=== PATIENT | male | born 1955 | race Caucasian/White ===

== ENCOUNTER → 2019-11-21 09:48 | Outpatient (BNVA) | payer MEDICAID, SELFPAY | PROVIDERS: Family Provider Nurse Practitioner; PCP Nurse Practitioner; Visit Provider Nurse Practitioner | DX: J44.9 Chronic obstructive pulmonary disease, unspecified (principal); M50.90 Cervical disc disorder, unspecified, unspecified cervical region; I25.10 Atherosclerotic heart disease of native coronary artery without angina pectoris; E11.65 Type 2 diabetes mellitus with hyperglycemia; I10 Essential (primary) hypertension; E78.2 Mixed hyperlipidemia | CPT/HCPCS: 80053; 80061; 83036 ==

== ENCOUNTER → 2020-01-31 08:13 | Outpatient (BNVA) | payer MEDICAID, SELFPAY | PROVIDERS: Family Provider Nurse Practitioner; PCP Nurse Practitioner; Visit Provider Nurse Practitioner | DX: E11.65 Type 2 diabetes mellitus with hyperglycemia (principal); E78.2 Mixed hyperlipidemia | CPT/HCPCS: 80053; 80061; 83036 ==

== ENCOUNTER → 2020-05-01 14:46 | Outpatient (BNVA) | payer MEDICAID, SELFPAY | PROVIDERS: Family Provider Nurse Practitioner; PCP Nurse Practitioner; Visit Provider Nurse Practitioner | DX: E11.65 Type 2 diabetes mellitus with hyperglycemia (principal); J44.9 Chronic obstructive pulmonary disease, unspecified; M50.90 Cervical disc disorder, unspecified, unspecified cervical region; I25.10 Atherosclerotic heart disease of native coronary artery without angina pectoris; I10 Essential (primary) hypertension; E78.2 Mixed hyperlipidemia | CPT/HCPCS: 80053; 80061; 81000; 83036 ==

== ENCOUNTER → 2020-05-02 15:45 | Outpatient (BNVA) | payer OTHER, MEDICAID, SELFPAY | PROVIDERS: Family Provider Nurse Practitioner; PCP Nurse Practitioner; Visit Provider Nurse Practitioner | DX: M50.90 Cervical disc disorder, unspecified, unspecified cervical region (principal); M25.511 Pain in right shoulder; M25.512 Pain in left shoulder; M54.9 Dorsalgia, unspecified; M54.2 Cervicalgia; R07.9 Chest pain, unspecified | CPT/HCPCS: 72040; 72072; 73030 ==

== ENCOUNTER 2020-05-08 16:41 | Emergency (ER) | payer OTHER, MEDICAID, SELFPAY ==
[2020-05-08 17:04] VITALS: BP 178/101; PULSE 67; RESP 18; TEMP 36.4; O2SAT 98; BMI 28.3
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
[2020-05-08] MEDS: diphenhydrAMINE 50 mg/mL SDV 1mL 25 MG IVP (18:46)
[2020-05-08] MEDS: ketorolac 30 mg/mL INJ IVP (18:46)
[2020-05-08] MEDS: metoclopramide 5 mg/mL SDV 2 mL 10 MG IVP (18:46)
[2020-05-08] MEDS: dexamethasone 10 mg/mL INJ IVP (18:47)
[2020-05-08] MEDS: sodium chloride 0.9% 1,000 ML 999 ML IV (18:47)
--- NOTE | 2020-05-08 19:18 | PC.NURSE ---
Report received from MOE Marcelo, and care transferred to MOE Topete
[2020-05-08 20:12] VITALS: BP 146/89; PULSE 61; RESP 18; O2SAT 99
== END 2020-05-08 20:13 | disposition home or self-care (01) ==
PROVIDERS: Emergency Provider Physician Assistant; PCP Nurse Practitioner
DX: M54.16 Radiculopathy, lumbar region (principal); G44.319 Acute post-traumatic headache, not intractable; S13.4XXA Sprain of ligaments of cervical spine, initial encounter; Z79.82 Long term (current) use of aspirin; Z79.02 Long term (current) use of antithrombotics/antiplatelets; V89.2XXA Person injured in unspecified motor-vehicle accident, traffic, initial encounter; I25.10 Atherosclerotic heart disease of native coronary artery without angina pectoris; I50.9 Heart failure, unspecified; E11.9 Type 2 diabetes mellitus without complications; J44.9 Chronic obstructive pulmonary disease, unspecified; E78.2 Mixed hyperlipidemia; F17.210 Nicotine dependence, cigarettes, uncomplicated
CPT/HCPCS: 12345; 70450; 72125; 73562; 96361; 96374; 96375; 99283; J1100; J1200; J1885; J2765; J7030

== ENCOUNTER 2020-05-16 06:00 | Outpatient (RCR) | payer OTHER, MEDICAID, SELFPAY | END 2020-06-06 23:59 | disposition home or self-care (01) | LOC: APT 06:00 | PROVIDERS: PCP Nurse Practitioner; Referring Provider Nurse Practitioner; Visit Provider Nurse Practitioner | DX: M54.16 Radiculopathy, lumbar region (principal); G44.319 Acute post-traumatic headache, not intractable; M50.90 Cervical disc disorder, unspecified, unspecified cervical region | CPT/HCPCS: 97110; 97140; 97163 ==

== ENCOUNTER 2020-06-07 06:00 | Outpatient (RCR) | payer OTHER, MEDICAID, SELFPAY | END 2020-07-07 23:59 | disposition home or self-care (01) | LOC: APT 06:00 | PROVIDERS: PCP Nurse Practitioner; Referring Provider Nurse Practitioner; Visit Provider Nurse Practitioner | DX: M54.16 Radiculopathy, lumbar region (principal); G44.319 Acute post-traumatic headache, not intractable; V89.2XXA Person injured in unspecified motor-vehicle accident, traffic, initial encounter; M50.90 Cervical disc disorder, unspecified, unspecified cervical region | CPT/HCPCS: 97110; 97140; 97164 ==

== ENCOUNTER 2020-07-04 07:33 | Outpatient (CLI) | payer MEDICAID, SELFPAY ==
--- NOTE | 2020-07-04 08:00 | MR_ITS ---
WS: [id number] MRI LEFT KNEE HISTORY: M25.562 Pain in left knee COMPARISON: 05/08/2020 radiographs. Anterior cruciate ligament: Intact. Posterior cruciate ligament: Intact. Medial collateral ligament: Intact. Posterior lateral corner structures: Intact. Medial menisci: Minimally complex tear in the posterior horn extends to the inferior articular surfac e. There is both vertical and horizontal component of the tear. Anterior horn is normal. Lateral meniscus: Intact. Normal signal, size and shape. Extensor mechanism: There is some very mild increased signal in the distal quadriceps tendon. No tear s. Fluid and soft tissue: No significant joint effusion. No Apple's cyst. Osseous and articular structures: Patellofemoral compartment: Normal. Medial compartment: Small focal tear in the cartilage of the femoral condyle towards the intercondyla r notch. This is also close to the site of the meniscal tear. No marrow edema or fracture. Mild narro wing and osteoarthritis of the medial compartment. Lateral compartment: Very mild fraying of the cartilage. No full-thickness tears. Mild narrowing oste oarthritis of the lateral compartment. MR/MR knee LT con* [id number] IMPRESSION: 1. Mildly complex tear posterior horn medial meniscus. Associated meniscal tea r in the medial femoral condyle. 2. Mild medial and lateral compartment arthritis. 3. No fracture.
== END 2020-07-04 07:34 | disposition home or self-care (01) ==
LOC: RADSHAW 07:35
PROVIDERS: PCP Nurse Practitioner; Visit Provider Nurse Practitioner
DX: S83.232A Complex tear of medial meniscus, current injury, left knee, initial encounter (principal); X58.XXXA Exposure to other specified factors, initial encounter; M13.862 Other specified arthritis, left knee
CPT/HCPCS: 73721

== ENCOUNTER 2020-07-08 06:00 | Outpatient (RCR) | payer OTHER, MEDICAID, SELFPAY | END 2020-08-06 23:59 | disposition home or self-care (01) | LOC: APT 06:00 | PROVIDERS: PCP Nurse Practitioner; Referring Provider Nurse Practitioner; Visit Provider Nurse Practitioner | DX: M54.16 Radiculopathy, lumbar region (principal); G44.319 Acute post-traumatic headache, not intractable; V89.2XXA Person injured in unspecified motor-vehicle accident, traffic, initial encounter | CPT/HCPCS: 97110 ==

== ENCOUNTER → 2020-07-16 08:25 | Outpatient (BNVA) | payer MEDICAID, SELFPAY | PROVIDERS: PCP Nurse Practitioner; Visit Provider Nurse Practitioner | DX: E11.65 Type 2 diabetes mellitus with hyperglycemia (principal); E78.2 Mixed hyperlipidemia; I10 Essential (primary) hypertension | CPT/HCPCS: 80053; 80061; 83036; 85025 ==

== ENCOUNTER → 2020-08-10 09:01 | Outpatient (BNVA) | payer MEDICAID, SELFPAY | PROVIDERS: PCP Nurse Practitioner; Visit Provider Orthopaedic Surgery | DX: Z20.828 Contact with and (suspected) exposure to other viral communicable diseases (principal); M47.816 Spondylosis without myelopathy or radiculopathy, lumbar region | CPT/HCPCS: 87635 ==

== ENCOUNTER 2020-08-16 10:47 | Day surgery (SDC) | payer MEDICAID, SELFPAY ==
[2020-08-15 15:34] VITALS: BMI 28.7
[2020-08-16] VITALS (11 sets, daily range): BP systolic 127–161; BP diastolic 80–101; PULSE 75–86; RESP 11–18; TEMP 36.1–36.7; O2SAT 96–100
--- NOTE | 2020-08-16 07:54 | W.PM.OPSUD ---
Surgery/Procedure H&P Update DATE OF PROCEDURE: August 16, 2020 DATE H&P PERFORMED: 07/30/20 PREOP DIAGNOSIS: Left medial meniscal tear PLANNED PROCEDURE: Operation Date: 08/16/20 09:10 Proposed Procedures p left knee arthroscopy with medial meniscectomy [id number] s83.242a(Left) - Arslan Queen MD
[2020-08-16 08:07] LABS: Glucose Point of Care 101 mg/dL (70-110)
[2020-08-16] MEDS: sodium chloride 0.9% 1,000 ML 30 ML IV (08:08)
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
[2020-08-16] MEDS: morphine 4 mg/mL SDV 1 mL 8 MG IM (09:26)
--- NOTE | 2020-08-16 09:37 | PM.OP ---
Operative Report Date of procedure: August 16, 2020 Pre-op Diagnosis: Left medial meniscal tear Post-op diagnosis: same Post-op Findings: Same Procedure Done: Partial left lateral meniscectomy Pathology: none sent Surgeon: Arslan Queen Anesthesia: General Estimated blood loss (mL): 5 Findings: Complex degenerative tear left medial meniscus delving central 70% Condition: stable Procedure: The patient was taken to the operating room and given a general anesthesia. He was prepped and draped in the supine position with his left lower extremity exposed. The left knee was infiltrated with 30 cc of 0.5% Marcaine with epi and 10 mg of morphine. A timeout was performed. The knee was initially entered through a standard inferior medial and inferolateral portals. The diagnostic portion arthroscopy was performed. Thick complex tearing was noted in the area of the medial meniscus consisting of central degeneration and horizontal cleavage extending back to peripheral third of the meniscus. Really no chondromalacia was identified. There is only mild softening of the cartilage beneath the patella but no significant fissures or chondral defects were noted throughout the knee. Is a central stabilizing ligaments were healthy. Attention was then paid to the medial meniscus. Utilizing a basket unstable superior and inferior flaps were debrided back to a stable rim. The [employer] probe was used to debride the remaining meniscus back to a stable rim leaving approximately 30% of the middle and posterior third of the meniscus remaining. The knee was irrigated with saline. Portals were closed with 3-0 Prolene. Sterile dressings were applied. The patient was extubated and taken to the recovery room in stable condition.
--- NOTE | 2020-08-16 09:42 | SUR.PHASEI ---
0942 PT L. PEDAL PULSE PALPATED, STRONG. CAP REFILL <3 SEC
== END 2020-08-16 11:00 | disposition home or self-care (01) ==
LOC: OR 10:47
PROVIDERS: PCP Nurse Practitioner; Visit Provider Orthopaedic Surgery
PROC: (CPT 29870; principal; 2020-08-16 09:10)
DX: S83.242A Other tear of medial meniscus, current injury, left knee, initial encounter (principal); X58.XXXA Exposure to other specified factors, initial encounter; F17.210 Nicotine dependence, cigarettes, uncomplicated; J44.9 Chronic obstructive pulmonary disease, unspecified; K21.9 Gastro-esophageal reflux disease without esophagitis; F41.9 Anxiety disorder, unspecified; I25.10 Atherosclerotic heart disease of native coronary artery without angina pectoris; E78.2 Mixed hyperlipidemia; I50.9 Heart failure, unspecified; E13.65 Other specified diabetes mellitus with hyperglycemia; Z79.82 Long term (current) use of aspirin
CPT/HCPCS: 29881; 12345; 36416; 82962; J0690; J2270; J3010; J3490; J7030

== ENCOUNTER → 2020-10-29 15:03 | Outpatient (BNVA) | payer MEDICAID, SELFPAY | PROVIDERS: PCP Nurse Practitioner; Visit Provider Nurse Practitioner | DX: J44.9 Chronic obstructive pulmonary disease, unspecified (principal); M50.90 Cervical disc disorder, unspecified, unspecified cervical region; I25.10 Atherosclerotic heart disease of native coronary artery without angina pectoris; E11.65 Type 2 diabetes mellitus with hyperglycemia; E78.2 Mixed hyperlipidemia; K21.9 Gastro-esophageal reflux disease without esophagitis; F41.9 Anxiety disorder, unspecified; I10 Essential (primary) hypertension | CPT/HCPCS: 80053; 80061; 82043; 83036 ==

== ENCOUNTER 2021-01-15 08:49 | Outpatient (CLI) | payer MEDICARE, MEDICAID, SELFPAY ==
--- NOTE | 2021-01-15 08:59 | ECG_ITS ---
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 Interpretive Statements NAME OF STUDY: LEXISCAN SESTAMIBI STRESS TEST INDICATION: Coronary Artery Disease PROCEDURE: At the baseline, the blood pressure was 140/85 mm Hg with a heart rate of 64 bpm. The electrocardiogram showed sinus rhythm, normal axis and non specific ST-T wave changes. The Lexiscan was infused over a period of 20 seconds. A total of 0.4 milligrams of Lexiscan was infused. The stress phase was continued for a total of 5 minutes. Heart rate at the end of the stress phase was 78 bpm with a blood pressure of 125/72 mm Hg. The EKG at the peak infusion revealed no significant ST-T wave changes. Sestamibi was injected 20 seconds after the Lexiscan infusion. Blood pressure at the end of the recovery phase was 120/73 mm Hg with a heart rate of 75 beats per minute. CONCLUSION: 1. No significant EKG changes with the LexiScan infusion. 2. No LexiScan induced chest pain or cardiac arrhythmia. 3. Normal blood pressure and heart rate response. 4. Sestamibi/sestamibi perfusion scan pending; see separate report. Electronically Signed On 01-18-2021 17:02:43 CDT by Kera Mason M.D. [id number]
--- NOTE | 2021-01-15 08:59 | NMCV_ITS ---
NM cresencio perf SPECT r/s* [id number] Keyshawn Simons Age: 65 Gender: M : 1955 Exam Date: 01/15/2021 08:59 Ordering Phys: Whit Fortune Technologist: MICHAELA Nevarez Exam Location: [facility] Indications: CAD STRESS TEST [facility] IMAGE PROTOCOL Rest/Stress 1 Lexiscan Day Radiopharmaceutical Dose (mCi) Administration Site Administered by Rest: Tc-99m 10.9 IV MICHAELA Weldon Sestamibi Stress:Tc-99m 32.7 IV MICHAELA Nevarez Sestamibi Rest: 15-Jan-2021 60 Discovery 630 Stress: 15-Jan-2021 30 Discovery 630 0.4mg Lexiscan. Images obtained in supine and prone position. SPECT RESULTS Technical Quality: Excellent Raw Data Analysis: Normal Image Corrections: No attenuation or motion correction applied Summed Stress Score: 10 Summed Rest Score: 4 Summed Difference Score: 7 PERFUSION FINDINGS Medium sized perfusion abnormality of mid anterior, mid to apical sabrina-septal joy on rest images with reversibility in basal to apical anterior, mid to apical anteroseptal and apical lateral joy on stress imges. FUNCTIONAL RESULTS (calculated via Gated SPECT) Stress Image LV EF (%): 43 Stress EDV (mL):168 TID: 0.91 Stress ESV (mL):95 FUNCTIONAL FINDINGS: The left ventricle is dilated. Transient Ischemia Dilatation of 0.91. There is mildly reduced left ventricular systolic function. The left ventricular ejection fraction is mildly reduced with a value of 43%. There is hypokinesis of anterior, septal and apical joy. Increased end diastolic and end systolic volumes. IMPRESSIONS 1. Medium sized partially reversible perfusion abnormality of basal to apical anterior, mid to apical anteroseptal and apical lateral joy. 2. 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 3. The left ventricular ejection fraction is mildly reduced with a value of 43%. 4. There is hypokinesis of anterior, septal and apical joy. 5. No significant change when compared to old study dated 04/02/2018. Kera Mason MD (Electronically Signed) Final Date: 20 Jan 2021 23:46 S
[2021-01-15 09:41] VITALS: BMI 27.4
[2021-01-15] MEDS: regadenoson 0.4 Mg/5 ml Syringe IVP (10:33)
[2021-01-15 10:51] VITALS: BP 127/75; PULSE 77
== END 2021-01-15 08:50 | disposition home or self-care (01) ==
PROVIDERS: PCP Nurse Practitioner; Visit Provider Nurse Practitioner Family
DX: I25.10 Atherosclerotic heart disease of native coronary artery without angina pectoris (principal)
CPT/HCPCS: 78452; 93017; A9500; J2785

== ENCOUNTER → 2021-01-31 13:57 | Outpatient (BNVA) | payer MEDICARE, MEDICAID, SELFPAY | PROVIDERS: PCP Nurse Practitioner; Visit Provider Nurse Practitioner | DX: I25.118 Atherosclerotic heart disease of native coronary artery with other forms of angina pectoris (principal); I10 Essential (primary) hypertension; F41.9 Anxiety disorder, unspecified; K21.9 Gastro-esophageal reflux disease without esophagitis; E78.2 Mixed hyperlipidemia; E11.65 Type 2 diabetes mellitus with hyperglycemia; I25.10 Atherosclerotic heart disease of native coronary artery without angina pectoris; M50.90 Cervical disc disorder, unspecified, unspecified cervical region; J44.9 Chronic obstructive pulmonary disease, unspecified | CPT/HCPCS: 80053; 83036 ==

== ENCOUNTER → 2021-02-05 09:27 | Outpatient (BNVA) | payer MEDICARE, MEDICAID, SELFPAY | PROVIDERS: PCP Nurse Practitioner; Visit Provider Internal Medicine Cardiovascular Disease | DX: I25.118 Atherosclerotic heart disease of native coronary artery with other forms of angina pectoris (principal); I50.32 Chronic diastolic (congestive) heart failure; Z20.822 Contact with and (suspected) exposure to COVID-19 | CPT/HCPCS: 80048; 85025; 85610; 87635 ==

== ENCOUNTER → 2021-02-08 05:38 | Day surgery (SDC) | payer MEDICARE, MEDICAID, SELFPAY ==
[2021-02-08] VITALS (15 sets, daily range): BP systolic 130–166; BP diastolic 88–103; PULSE 60–73; RESP 9–19; TEMP 36.8; O2SAT 93–98; BMI 27.1
--- NOTE | 2021-02-08 06:00 | XACV_ITS ---
Ht: 180 cm Wt: 88 kg BSA: 2.12 m2 Gender: Male : 1955 Any Known Allergies: No known allergies Exam Priority: Routine Procedure(s): Procedure Description: Diagnostic procedure Procedure Description: Coronary Angiography Procedure Description: Pressure Wire Diagnostic Cath Status: Elective Diagnostic Findings * Left Main has no disease. * Left Anterior Descending has no disease. * Circumflex has no disease. * Distal Left Anterior Descending to 1st Diagonal collaterallization. * Proximal Right Coronary Artery: moderate 50% stenosis, CELSA: 3 flow. * Mid Right Coronary Artery: obstructive 60% stenosis, CELSA: 3 flow. * 1st Diagonal: total occlusion, CELSA: 0 flow. * Coronary angiography shows right dominance. Conclusions 1. FFR: After equalizing the distal and proximal pressure of FFR wire proximal to the lesion, mid 2. RCA 3. lesion was crossed with FFR wire. IV adenosine at rate of 140 mcg/min was started. Patient did not compliant of any symptoms, at then end of two minutes FFR was recorded as 0.86 to 0.92, which is not significant . 4. There is obstructive coronary artery disease with one vessel disease. Recommendations * Continue current medical management and risk factor modification. Diagnostic RX Recommendation: medical therapy and/or counseling Pressures Phase:Rest AO : 134 / 68 ( 92 ) @ 7:08:00 AM Clinical Evaluation EBL: 5mL-10mL Procedural Details Procedure Consent Obtained. Current Diagnosis : Chest Pain. Pre-Procedure Time Out. Identified patient by full name and date of as verbalized by the patient/guarantor. Does the consent match the physician's order: Yes. Accurate & Complete Informed Consent: Yes. Inpatient/Outpatient History & Physical on Chart: Yes. If H&P is completed, is and addenduem needed: No; If yes, is the addendum complete: N/A. Visualize and Verify Site with Patient/Guarantor: N/A. Relevant Radiology Images available: N/A. Pre-op teaching completed and patient verbalized understanding. The risks, benefits, and alternatives of sedation and/or procedure were discussed by physician. The patient agrees to continue. Procedure started. [facility] Clinical Fraility Score: 3: Managing Well. 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 Chest Pain Symptom Assessment: Typical Angina Symptoms. Cardiovascular Instability: No. Correct patient, site and procedure confirmed by cath team. PERRLA. 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 Lungs clear x 5 lobes. IV Site on Arrival: 20 gauge in the left anticubital. IV Fluids: 0.9% NaCl at KVO. 0 mL infused prior to engineer geophysical laboratory. Pre Procedural Pulses: right dorsalis pedis was 1+. Pre Procedural Pulses: left dorsalis pedis was 2+. Pre Procedural Pulses: bilateral posterior tibial was 2+. Pre Procedural Pulses: bilateral radial was 2+. Oxygen started at 2liters/min via nasal canula. bilateral groins was prepped with chloroprep then draped in the usual sterile fashion. Baseline sample Acquired. HR: 60 BPM. Equipment: 6F - Femoral. Cardiac Cath Pack. ACIST Manifold Kit Model BT 2000. Heparinized Saline (2 units/mL), 1000 mL bag. Kit, Micropuncture. Physician arrived. Physician scrubbed in. Immediate Pre-Procedure Time Out. Correct Patient: Yes; Correct Procedure: Yes; Correct Site: Yes; Correct Patient Position: Yes; Correct Supplies: Yes; Dried Flammable Prep: Yes; Blood Products Available: N/A;. Lidocaine 1% infiltrated to the right groin. Arterial access obtained with micropuncture set. A 5 somali JL4 catheter in over wire. Multiple views taken of left coronary artery. Catheter removed over the standard wire. A 5 somali JR4 catheter in over wire. Catheter removed over the standard wire. A 5 somali 3DRC catheter in over wire. Multiple views taken of right coronary artery. Catheter removed over the standard wire. 6 somali 3DRC guide catheter was inserted over the wire. FFR guidewire was advanced through the guide catheter to lesion in the mid RCA. An FFR value of 0.92 was obtained for a lesion located at Mid RCA. Fractional flow reserve measurements obtained. Wire out. Guide catheter out. A Right femoral angiogram was performed to determine safe placement of closure device. Lidocaine 1% infiltrated to the right groin. A Perclose ([employer]) was successful obtaining hemostatsis at the Right Femoral artery insertion site. Perclose placed without complications. No signs or symptoms of hematoma noted. Sterile dressing applied per usual sterile fashion. Post Procedure: Pulses reassessed and unchanged. PERRLA. 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 No VTE prophylaxis required. Medication's Wasted: Other = adenosine 57 mg. Total IV fluids: 51 mL. Contrast type used: Omnipaque 300 mgI/mL, 500 mL bottle. Medication's Wasted: Heparin = 1000 units. Physician scrubbed out. Post-op diagnosis: patent stents, non obstructive lesion mid RCA. Complications: none. Estimated blood loss: 5mL-10mL. Procedure completed. Patient transferred by stretcher to CPRU. Vital chart was stopped. Access Site Site: Right Femoral artery Sheath Size: 6 Fr Hemostasis Method: Perclose ([employer]) Hemostasis Success: Successful Procedure Medications Start: 7:57 AM Stop: 7:57 AM Medication: Versed Amount: 1 mg Route: I.V. Start: 7:58 AM Stop: 7:58 AM Medication: Fentanyl Amount: 50 mcg Route: I.V. Start: 8:02 AM Stop: 8:02 AM Medication: Versed Amount: 1 mg Route: I.V. Start: 8:02 AM Stop: 8:02 AM Medication: Fentanyl Amount: 50 mcg Route: I.V. Start: 8:15 AM Stop: 8:15 AM Medication: Heparin Amount: 5000 units Route: I.V. I, the attending physician, have reviewed and verified all procedure medications. Yes, all medications given per verbal order History/Risk Factors Hypertension: Yes Dyslipidemia: Yes Peripheral Arterial Disease (PAD): No Myocardial Infarction (NC): No Obesity: No Renal Disease: No Tobacco Use: Current/Recent(w/in 1 year) Prior Interventions PCI: Yes CABG: No Valve Surgery: No Report Signatures Finalized by Zachariah Leslie MD on 02/09/2021 02:46 PM
[2021-02-08] MEDS: diphenhydrAMINE 50 mg Capsule PO (06:50)
--- NOTE | 2021-02-08 07:50 | W.PM.OPSUD ---
Surgery/Procedure H&P Update DATE OF PROCEDURE: February 08, 2021 DATE H&P PERFORMED: 01/23/21 H&P UPDATE INFORMATION: I have reviewed H&P completed within last 30 days, I have examined patient prior to procedure and No changes to prior documentation PREOP DIAGNOSIS: Worsening of angina with abnormal stress test PLANNED PROCEDURE: Operation Date: 02/08/21 07:00 Proposed Procedures p Cardiac Catheterization 78204 R94.39(Left) - Zachariah Leslie MD PATIENT REASSESSED PRIOR TO SEDATION, WITH NO CHANGE NOTED: Yes PHYSICAL EXAM: alert, oriented x 3 and clear to auscultation bilaterally AIRWAY EVAL/ANESTHESIA PLAN: ASA II and Risks, benefits & alternatives of sedation and/or procedure discussed
--- NOTE | 2021-02-08 12:21 | PC.NURSE ---
Ambulated OOB and ambulated in kumar at this time. R femoral site without s/s of hematoma or bleeding, dressing c/d/i. No c/o pain at this time. Will continue to monitor.
--- NOTE | 2021-02-08 13:13 | PC.NURSE ---
Discharged Given discharge instructions and discharged home at this time. Verbalized understanding.
== END | disposition home or self-care (01) ==
PROVIDERS: PCP Nurse Practitioner; Visit Provider Internal Medicine Cardiovascular Disease
DX: I25.118 Atherosclerotic heart disease of native coronary artery with other forms of angina pectoris (principal); R94.39 Abnormal result of other cardiovascular function study; E78.5 Hyperlipidemia, unspecified; F17.210 Nicotine dependence, cigarettes, uncomplicated; I11.0 Hypertensive heart disease with heart failure; I50.32 Chronic diastolic (congestive) heart failure; Z79.82 Long term (current) use of aspirin
CPT/HCPCS: 36415; 93454; 93571; C1760; C1769; C1887; C1894; J0153; J1644; J2250; J3010; J7030; Q0163; Q9967

== ENCOUNTER → 2021-02-15 11:40 | Outpatient (BNVA) | payer MEDICARE, MEDICAID, SELFPAY | PROVIDERS: PCP Nurse Practitioner; Visit Provider Nurse Practitioner Family | DX: I25.118 Atherosclerotic heart disease of native coronary artery with other forms of angina pectoris (principal) | CPT/HCPCS: 80048 ==

== ENCOUNTER → 2021-04-02 10:00 | Outpatient (BNVA) | payer MEDICARE, MEDICAID, SELFPAY | PROVIDERS: PCP Nurse Practitioner; Referring Provider Orthopaedic Surgery; Visit Provider Anesthesiology Pain Medicine | DX: G89.29 Other chronic pain (principal); M50.90 Cervical disc disorder, unspecified, unspecified cervical region; M47.812 Spondylosis without myelopathy or radiculopathy, cervical region | CPT/HCPCS: 99204 ==

== ENCOUNTER 2021-04-10 13:49 | Outpatient (CLI) | payer MEDICARE, MEDICAID, SELFPAY ==
--- NOTE | 2021-04-10 16:00 | MR_ITS ---
WS: [id number] MRI CERVICAL SPINE NONCONTRAST HISTORY: M48.02 - Spinal stenosis, cervical region COMPARISON: CT 05/08/2020 Technique: Multiplanar, multisequence noncontrast imaging of the cervical spine. Moderate increase in the cervical lordosis. Central canal narrowing due to combination of disc diseas e, osteophytes and facet arthritis. Most significant at C3-4 and C4-5. Disc spaces are narrowed throughout the cervical spine. Most significant at C4-5. No acute fracture o r marrow edema. Craniocervical junction, C1 and C2 relationship, odontoid process and soft tissues are normal. C2-C3: Mild narrowing of the central canal with no focal disc protrusion. C3-C4: Diffuse osteophytic ridging and annular disc bulging. Complete effacement of CSF surrounding t he cord. Severe central and bilateral foraminal stenosis. C4-C5: Diffuse osteophytic ridging and annular disc bulging with mild facet arthritis. Severe central and RIGHT foraminal stenosis. Moderate to severe LEFT foraminal stenosis. C5-C6: Mild diffuse annular disc bulging and osteophytic ridging. Mild central and bilateral foramina l stenosis and mild facet arthritis. C6-C7: Very mild annular disc bulging without severe stenosis. C7-T1: No stenosis. Paraspinal soft tissue are normal. MR/MR cervical spin wo con* [id number] IMPRESSION: 1. Severe central and bilateral foraminal stenosis at C3-4 due to disc and ost eophyte and facet disease with deformity of the cervical cord. 2. Severe central and RIGHT foraminal stenosis at C4-5 and moderate to severe LEFT foraminal stenosis due to disc, osteophyte disease and facet disease. 3. Mild central and bilateral foraminal stenosis at C5-6. 4. Increase in the cervical lordosis with moderate to severe multilevel spondy losis.
== END 2021-04-10 13:50 | disposition home or self-care (01) ==
LOC: RADSHAW 13:52
PROVIDERS: PCP Nurse Practitioner; Visit Provider Orthopaedic Surgery
DX: M48.02 Spinal stenosis, cervical region (principal)
CPT/HCPCS: 72050; 72141

== ENCOUNTER → 2021-04-17 13:29 | Outpatient (BNVA) | payer MEDICARE, MEDICAID, SELFPAY | PROVIDERS: PCP Nurse Practitioner; Visit Provider Anesthesiology Pain Medicine | DX: G89.29 Other chronic pain (principal); M47.812 Spondylosis without myelopathy or radiculopathy, cervical region | CPT/HCPCS: 64490; 64491; 64492; J3490 ==

== ENCOUNTER → 2021-04-25 15:13 | Outpatient (BNVA) | payer MEDICARE, MEDICAID, SELFPAY | PROVIDERS: PCP Nurse Practitioner; Visit Provider Nurse Practitioner | DX: E11.65 Type 2 diabetes mellitus with hyperglycemia (principal); J44.9 Chronic obstructive pulmonary disease, unspecified; M50.90 Cervical disc disorder, unspecified, unspecified cervical region; I25.118 Atherosclerotic heart disease of native coronary artery with other forms of angina pectoris; E78.2 Mixed hyperlipidemia; K21.9 Gastro-esophageal reflux disease without esophagitis; F41.9 Anxiety disorder, unspecified | CPT/HCPCS: 80053; 80061; 82043; 83036 ==

== ENCOUNTER → 2021-05-02 13:35 | Outpatient (BNVA) | payer MEDICARE, MEDICAID, SELFPAY | PROVIDERS: PCP Nurse Practitioner; Visit Provider Anesthesiology Pain Medicine | DX: G89.29 Other chronic pain (principal); M50.90 Cervical disc disorder, unspecified, unspecified cervical region; M47.812 Spondylosis without myelopathy or radiculopathy, cervical region | CPT/HCPCS: 99214 ==

== ENCOUNTER → 2021-05-17 12:43 | Outpatient (BNVA) | payer MEDICARE, MEDICAID, SELFPAY | PROVIDERS: PCP Nurse Practitioner; Visit Provider Anesthesiology Pain Medicine | DX: Z01.812 Encounter for preprocedural laboratory examination (principal); E11.9 Type 2 diabetes mellitus without complications; G89.29 Other chronic pain; M47.812 Spondylosis without myelopathy or radiculopathy, cervical region; F17.210 Nicotine dependence, cigarettes, uncomplicated | CPT/HCPCS: 36416; 64633; 64634; 82962; J1030 ==

== ENCOUNTER → 2021-07-18 14:25 | Outpatient (BNVA) | payer MEDICARE, MEDICAID, SELFPAY | PROVIDERS: PCP Nurse Practitioner; Visit Provider Nurse Practitioner | DX: E11.65 Type 2 diabetes mellitus with hyperglycemia (principal) | CPT/HCPCS: 83036 ==

== ENCOUNTER → 2021-10-21 15:08 | Outpatient (BNVA) | payer MEDICARE, MEDICAID, SELFPAY | PROVIDERS: PCP Nurse Practitioner; Visit Provider Nurse Practitioner | DX: J44.9 Chronic obstructive pulmonary disease, unspecified (principal); I25.118 Atherosclerotic heart disease of native coronary artery with other forms of angina pectoris; E11.65 Type 2 diabetes mellitus with hyperglycemia; M50.90 Cervical disc disorder, unspecified, unspecified cervical region; E78.2 Mixed hyperlipidemia; K21.9 Gastro-esophageal reflux disease without esophagitis; F41.9 Anxiety disorder, unspecified | CPT/HCPCS: 80053; 80061; 81000; 82043; 83036 ==

== ENCOUNTER → 2022-01-13 14:10 | Outpatient (BNVA) | payer MEDICARE, MEDICAID, SELFPAY | PROVIDERS: PCP Nurse Practitioner; Visit Provider Nurse Practitioner | DX: E11.65 Type 2 diabetes mellitus with hyperglycemia (principal); J44.9 Chronic obstructive pulmonary disease, unspecified; I25.118 Atherosclerotic heart disease of native coronary artery with other forms of angina pectoris; M50.90 Cervical disc disorder, unspecified, unspecified cervical region; E78.2 Mixed hyperlipidemia; F41.9 Anxiety disorder, unspecified; K21.9 Gastro-esophageal reflux disease without esophagitis; I10 Essential (primary) hypertension | CPT/HCPCS: 80053; 83036 ==

== ENCOUNTER → 2022-04-04 09:34 | Outpatient (BNVA) | payer MEDICARE, MEDICAID, SELFPAY | PROVIDERS: PCP Nurse Practitioner; Visit Provider Internal Medicine Cardiovascular Disease | DX: I25.118 Atherosclerotic heart disease of native coronary artery with other forms of angina pectoris (principal); I10 Essential (primary) hypertension; E78.2 Mixed hyperlipidemia; E11.65 Type 2 diabetes mellitus with hyperglycemia; Z79.84 Long term (current) use of oral hypoglycemic drugs; J44.9 Chronic obstructive pulmonary disease, unspecified; F17.210 Nicotine dependence, cigarettes, uncomplicated; I34.0 Nonrheumatic mitral (valve) insufficiency; Z95.820 Peripheral vascular angioplasty status with implants and grafts | CPT/HCPCS: 99213 ==

== ENCOUNTER → 2022-04-07 13:30 | Outpatient (BNVA) | payer MEDICARE, MEDICAID, SELFPAY | PROVIDERS: PCP Nurse Practitioner; Visit Provider Nurse Practitioner | DX: J44.9 Chronic obstructive pulmonary disease, unspecified (principal); M50.90 Cervical disc disorder, unspecified, unspecified cervical region; E11.65 Type 2 diabetes mellitus with hyperglycemia; E78.2 Mixed hyperlipidemia; K21.9 Gastro-esophageal reflux disease without esophagitis; F41.9 Anxiety disorder, unspecified | CPT/HCPCS: 80053; 80061; 83036 ==

== ENCOUNTER → 2022-07-04 11:45 | Outpatient (BNVA) | payer MEDICARE, MEDICAID, SELFPAY | PROVIDERS: PCP Nurse Practitioner; Visit Provider Nurse Practitioner | DX: E11.65 Type 2 diabetes mellitus with hyperglycemia (principal); J44.9 Chronic obstructive pulmonary disease, unspecified; M50.90 Cervical disc disorder, unspecified, unspecified cervical region; E78.2 Mixed hyperlipidemia; K21.9 Gastro-esophageal reflux disease without esophagitis; F41.9 Anxiety disorder, unspecified; I10 Essential (primary) hypertension | CPT/HCPCS: 80053; 83036; 86705; 86706; 86709; 86803; 87340 ==

== ENCOUNTER → 2022-10-09 14:57 | Outpatient (BNVA) | payer MEDICARE, MEDICAID, SELFPAY | PROVIDERS: PCP Nurse Practitioner; Visit Provider Nurse Practitioner | DX: E11.65 Type 2 diabetes mellitus with hyperglycemia (principal) | CPT/HCPCS: 80053; 80061; 81000; 82043; 83036 ==

== ENCOUNTER → 2022-10-10 09:39 | Outpatient (BNVA) | payer MEDICARE, MEDICAID, SELFPAY | PROVIDERS: PCP Nurse Practitioner; Visit Provider Internal Medicine | DX: I25.118 Atherosclerotic heart disease of native coronary artery with other forms of angina pectoris (principal); E78.2 Mixed hyperlipidemia; I11.0 Hypertensive heart disease with heart failure; I50.32 Chronic diastolic (congestive) heart failure; F17.210 Nicotine dependence, cigarettes, uncomplicated; Z95.5 Presence of coronary angioplasty implant and graft | CPT/HCPCS: 99214 ==

== ENCOUNTER → 2023-01-01 15:32 | Outpatient (BNVA) | payer MEDICARE, MEDICAID, SELFPAY | PROVIDERS: PCP Nurse Practitioner; Visit Provider Nurse Practitioner | DX: E11.65 Type 2 diabetes mellitus with hyperglycemia (principal); I50.32 Chronic diastolic (congestive) heart failure | CPT/HCPCS: 80053; 80061; 83036 ==

== ENCOUNTER → 2023-03-26 14:36 | Outpatient (BNVA) | payer MEDICARE, MEDICAID, SELFPAY | PROVIDERS: PCP Nurse Practitioner; Visit Provider Nurse Practitioner | DX: E11.65 Type 2 diabetes mellitus with hyperglycemia (principal) | CPT/HCPCS: 80053; 83036 ==

== ENCOUNTER → 2023-06-18 15:24 | Outpatient (BNVA) | payer MEDICARE, MEDICAID, SELFPAY | PROVIDERS: PCP Nurse Practitioner; Visit Provider Nurse Practitioner | DX: E11.65 Type 2 diabetes mellitus with hyperglycemia (principal); I10 Essential (primary) hypertension; J44.9 Chronic obstructive pulmonary disease, unspecified; M50.90 Cervical disc disorder, unspecified, unspecified cervical region; E78.2 Mixed hyperlipidemia; K21.9 Gastro-esophageal reflux disease without esophagitis; F41.9 Anxiety disorder, unspecified; Z23 Encounter for immunization | CPT/HCPCS: 80053; 80061; 83036 ==

== ENCOUNTER 2023-07-12 18:46 | Emergency (ER) | payer MEDICARE, MEDICAID, SELFPAY ==
[2023-07-12 18:59] VITALS: BP 154/88; PULSE 65; RESP 18; TEMP 36.7; O2SAT 98; BMI 28.4
--- NOTE | 2023-07-12 19:07 | CTR_ITS ---
PROCEDURE INFORMATION: Exam: CT Chest With Contrast; Diagnostic Exam date and time: 07/12/2023 8:26 PM Age: 67 years old Clinical indication: Injury or trauma; Generalized; Blunt trauma (contusions or hematomas); Patient HX: 11 foot fall from tree stand just prior to er arrival. Patient's only focal complaint is chest pain. ; Additional info: Fall 11 ft chest inj TECHNIQUE: Imaging protocol: Diagnostic computed tomography of the chest with contrast. Radiation optimization: All CT scans at this facility use at least one of these dose optimization techniques: automated exposure control; mA and/or kV adjustment per patient size (includes targeted exams where dose is matched to clinical indication); or iterative reconstruction. Contrast material: OMNI 350; Contrast volume: 100 ml; Contrast route: INTRAVENOUS (IV); REPORTING DATA: Count of CT and Cardiac NM exams in prior 12 months: This patient has received 0 known CTs and 0 known cardiac nuclear medicine studies in the 12 months prior to the current study. COMPARISON: CT cervical spin wo con* [id number] 07/12/2023 8:22 PM RADIATION DOSE METRICS: Total DLP (mGy-cm): 1156.97 FINDINGS: Lungs: No focal consolidation or pleural effusion. Pleural spaces: See Lungs finding. Heart: Unremarkable. No cardiomegaly. No pericardial effusion. Coronary arteries: Coronary arterial atherosclerotic calcifications are present. Lymph nodes: Unremarkable. No enlarged lymph nodes. Vasculature: No pulmonary embolus. Bones/joints: Unremarkable. No acute fracture. Soft tissues: Unremarkable. PROCEDURE INFORMATION: Exam: CT Abdomen And Pelvis With Contrast Exam date and time: 07/12/2023 8:26 PM Age: 67 years old Clinical indication: Injury or trauma; Generalized; Blunt trauma (contusions or hematomas); Patient HX: 11 foot fall from tree stand just prior to er arrival. Patient's only focal complaint is chest pain. ; Additional info: Fall 11 ft chest inj TECHNIQUE: Imaging protocol: Computed tomography of the abdomen and pelvis with contrast. Radiation optimization: All CT scans at this facility use at least one of these dose optimization techniques: automated exposure control; mA and/or kV adjustment per patient size (includes targeted exams where dose is matched to clinical indication); or iterative reconstruction. Contrast material: OMNI 350; Contrast volume: 100 ml; Contrast route: INTRAVENOUS (IV); REPORTING DATA: Count of CT and Cardiac NM exams in prior 12 months: This patient has received 0 known CTs and 0 known cardiac nuclear medicine studies in the 12 months prior to the current study. COMPARISON: ES surgery / GI images 08/16/2020 9:38 AM RADIATION DOSE METRICS: Total DLP (mGy-cm): 1156.97 FINDINGS: Liver: Normal. No mass. Gallbladder and bile ducts: Normal. No calcified stones. No ductal dilation. Pancreas: Normal. No ductal dilation. Spleen: Normal. No splenomegaly. Adrenal glands: Normal. No mass. Kidneys and ureters: Normal. No hydronephrosis. Stomach and bowel: No secondary signs of bowel injury. Appendix: No evidence of appendicitis. Intraperitoneal space: Unremarkable. No free air. No significant fluid collection. Vasculature: Unremarkable. No abdominal aortic aneurysm. Lymph nodes: Unremarkable. No enlarged lymph nodes. Urinary bladder: Unremarkable as visualized. Reproductive: Unremarkable as visualized. Bones/joints: No fractures. Severe degenerative disc disease at L5-S1. Soft tissues: Unremarkable. Other findings: No solid organ injury in the abdomen or pelvis. CT/CT chest abdpel w/*[id number] IMPRESSION: 1. No pulmonary embolus. 2. No focal consolidation or pleural effusion. 3. Atherosclerosis. Coronary artery disease. IMPRESSION: 1. No solid organ injury in the abdomen or pelvis. 2. No secondary signs of bowel injury. 3. No fractures.
--- NOTE | 2023-07-12 19:07 | CTR_ITS ---
PROCEDURE INFORMATION: Exam: CT Cervical Spine Without Contrast Exam date and time: 07/12/2023 8:22 PM Age: 67 years old Clinical indication: Injury or trauma; Blunt trauma; Patient HX: 11 foot fall from tree stand just prior to er arrival. Patient's only focal complaint is chest pain. ; Additional info: Fall 11 ft head inj TECHNIQUE: Imaging protocol: Computed tomography of the cervical spine without contrast. Sagittal, oblique axial, and coronal reformatted images were created and reviewed. Radiation optimization: All CT scans at this facility use at least one of these dose optimization techniques: automated exposure control; mA and/or kV adjustment per patient size (includes targeted exams where dose is matched to clinical indication); or iterative reconstruction. REPORTING DATA: Count of CT and Cardiac NM exams in prior 12 months: This patient has received 0 known CTs and 0 known cardiac nuclear medicine studies in the 12 months prior to the current study. COMPARISON: MR cervical spin wo con* [id number] 04/10/2021 3:59 PM RADIATION DOSE METRICS: Total DLP (mGy-cm): 531.27 FINDINGS: Bones/joints: Vertebral body height is maintained. No subluxation. Bones are diffusely osteopenic. Stable multilevel degenerative changes of varying severity in the visualized spine. Stable mild spinal canal stenosis at C2-C3 C5-C6, and C6-C7 in stable moderate spinal canal stenosis at C3-C4 and C4-C5. Stable multilevel foraminal stenosis of varying severity in the cervical spine. No acute fracture. Lungs: The visualized portions of the lung apices are unremarkable. Soft tissues: No paravertebral soft tissue abnormality. No radiopaque foreign body. CT/CT cervical spin wo con* [id number] IMPRESSION: 1. No acute fracture of the cervical spine. 2. Stable multilevel degenerative changes of varying severity in the visualized spine. 3. Stable mild spinal canal stenosis at C2-C3 C5-C6, and C6-C7 in stable moderate spinal canal stenosis at C3-C4 and C4-C5. Stable multilevel foraminal stenosis of varying severity in the cervical spine. 4. Incidental/nonacute findings are listed in the report.
--- NOTE | 2023-07-12 19:07 | XRR_ITS ---
PROCEDURE INFORMATION: Exam: XR Left Foot Exam date and time: 07/12/2023 7:36 PM Age: 67 years old Clinical indication: Injury or trauma; Other: Lt foot/ankle pain post fall; Patient HX: Lt foot/ankle pain and swelling after falling from tree stand TECHNIQUE: Imaging protocol: Radiologic exam of the left foot. Views: 3 or more views. COMPARISON: No relevant prior studies available. FINDINGS: Bones/joints: Normal. Soft tissues: Mild soft tissue swelling along the dorsal aspect of the forefoot. XR/XR foot LT min 3V* [id number] IMPRESSION: 1. No acute fracture identified. 2. Soft tissue swelling along the dorsal aspect of the forefoot..
--- NOTE | 2023-07-12 19:07 | CTR_ITS ---
PROCEDURE INFORMATION: Exam: CT Head Without Contrast Exam date and time: 07/12/2023 8:19 PM Age: 67 years old Clinical indication: Injury or trauma; Blunt trauma (contusions or hematomas); Patient HX: 11 foot fall from tree stand just prior to er arrival. Patient's only focal complaint is chest pain. ; Additional info: Fall 11 ft head inj TECHNIQUE: Imaging protocol: Computed tomography of the head without contrast. Sagittal and coronal reformatted images were created and reviewed. Radiation optimization: All CT scans at this facility use at least one of these dose optimization techniques: automated exposure control; mA and/or kV adjustment per patient size (includes targeted exams where dose is matched to clinical indication); or iterative reconstruction. REPORTING DATA: Count of CT and Cardiac NM exams in prior 12 months: This patient has received 0 known CTs and 0 known cardiac nuclear medicine studies in the 12 months prior to the current study. COMPARISON: CT head wo con* [id number] 05/08/2020 6:11 PM RADIATION DOSE METRICS: Total DLP (mGy-cm): 1074.39 FINDINGS: Brain: No acute intracranial hemorrhage. No acute infarct. No intra-axial or extra-axial masses. Vasquez-white matter differentiation is preserved. No cerebral edema. No extra-axial fluid collections. No midline shift. Stable lacunar infarcts in the left caudate lobe and left basal ganglia. No evidence for Chiari 1 malformation. Cerebral ventricles: No hydrocephalus. Paranasal sinuses: Visualized paranasal sinuses are clear. Mastoid air cells: Visualized mastoid air cells are clear. Orbital cavities: No acute abnormality in the visualized orbits. Bones/joints: No acute fracture. Soft tissues: No acute abnormality of the extracranial soft tissues. Vasculature: Mild atherosclerotic changes in the visualized arteries. CT/CT head wo con* [id number] IMPRESSION: 1. No acute abnormality of the brain. 2. Stable lacunar infarcts in the left caudate lobe and left basal ganglia. 3. Incidental/nonacute findings are listed in the report.
--- NOTE | 2023-07-12 19:07 | XRR_ITS ---
PROCEDURE INFORMATION: Exam: XR Left Ankle Exam date and time: 07/12/2023 7:36 PM Age: 67 years old Clinical indication: Injury or trauma; Patient HX: -lt foot/ankle pain and swelling after falling from tree stand; Additional info: -lt foot/ankle pain and swelling after falling from tree stand. TECHNIQUE: Imaging protocol: Radiologic exam of the left ankle. Views: 3 or more views. COMPARISON: No relevant prior studies available. FINDINGS: Bones/joints: On the lateral view there is an irregular linear lucency extending through 1 of the cuneiform bones, it is unclear which bone is involved. There is apparent abnormal widening of the base of the 1st and 2nd metatarsals. Soft tissues: Normal. XR/XR ankle LT min 3V* [id number] IMPRESSION: On the lateral view there is an irregular linear lucency extending through 1 of the cuneiform bones, it is unclear which bone is involved. There is apparent abnormal widening of the base of the 1st and 2nd metatarsals. Consider midfoot CT for further evaluation as a cuneiform fracture and possibly Lisfranc injury can not be excluded.
[2023-07-12 19:52] VITALS: BP 145/82; PULSE 59; RESP 16; O2SAT 97
[2023-07-12] MEDS: ketorolac 30 mg/mL INJ IVP (20:03)
[2023-07-12 20:42] VITALS: RESP 18; O2SAT 98
[2023-07-12] MEDS: mupirocin oint 22 gm 1 APPLIC TOPICAL (20:42)
[2023-07-12] MEDS: oxyCODONE-APAP 5-325 mg Tablet 2 TAB PO (20:42)
[2023-07-12 20:47] VITALS: BP 173/89; PULSE 59; RESP 16; O2SAT 97
--- NOTE | 2023-07-12 20:48 | ED_ITS ---
HPI - Fall General: Chief Complaint: Fall Stated Complaint: fall from tree stand 11 ft, left foot pain, chest Time Seen by Provider: 07/12/23 18:59 History of Present Illness: 67-year-old male who missed a step while coming off of his tree stand, following 11 feet or so. He grabbed a tree on the way down, and has an abraded chest from bark and pine branches which slowed his fall. He hit his face. He also landed on his left foot and has left midfoot pain and swelling. He was not knocked unconscious. He is not complaining of neck pain, chest pain or belly pain other than the abrasions on his chest. Associated symptoms-after fall: Reports chest pain (Skin pain related to abrasions mainly); Denies abdominal pain or headache(s) Review of Systems Const: Denies: fever(s) Card: Reports: chest pain (Skin pain related to abrasions mainly) Resp: Denies: dyspnea, productive cough or non-productive cough GI: Denies: abdominal pain or vomiting Skin/Breast: Reports: rash Neuro: Denies: headache(s), numbness in extremities or weakness in extremities PFSH ED PFSH: Medical History CAD (coronary artery disease) Cervical disc disease CHF (congestive heart failure) Chronic mitral valve regurgitation Controlled type 2 diabetes mellitus with hyperglycemia, without long-term current use of insulin COPD, mild Essential (primary) hypertension GERD (gastroesophageal reflux disease) Mixed hyperlipidemia Personal history of nicotine dependence Surgical History History of arthroscopy of right knee 2017 Status post percutaneous transluminal angioplasty ([employer]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) with stent placement (~2004) AND 2015 Family History Other CAD (coronary artery disease) Cancer Diabetes Social History Smoking and tobacco/nicotine status: current every day tobacco/nicotine user cigarettes Packs smoked per day: 1 Second hand smoke exposure: Yes Alcohol intake: never Substance/Drug Use: never Adopted: No Caregiver/support person: No Lives independently: Yes Household members: significant other Housing: House Marital status: Single Number of children: 6 service: No Current occupational status: retired Do you think of yourself as: Straight/Heterosexual Current gender identity: Male Physical Exam Const: COMMON NORMALS: no acute distress GENERAL APPEARANCE: cooperative; not ill appearing HENMT: COMMON NORMALS: normocephalic and Normal external nose present HEAD & SCALP: normocephalic FACE & SINUS: abrasion, ecchymosis and erythema NOSE: Normal external nose present and Normal nares present Eye: COMMON NORMALS: Equal, round and reactive pupils present and EOMs intact bilaterally PUPIL: Yes Equal, round and reactive pupils present Neck/C-Spine: GENERAL: Yes trachea midline Chest: CHEST: Yes Symmetrical chest wall rise, Yes tenderness, Yes abrasion and Yes Ecchymosis present Resp: COMMON NORMALS: normal respiratory effort and clear to auscultation bilaterally AUSCULTATION: clear to auscultation bilaterally Cardio: COMMON NORMALS: regular rate and regular rhythm RATE: regular rate RHYTHM: regular rhythm GI: COMMON NORMALS: Normal to inspection, nondistended, normoactive bowel sounds present and non-tender Back/Pelvis: THORACIC SPINE/UPPER BACK: Yes thoracic spinal tenderness LUMBAR SPINE/LOWER BACK: Yes lumbar spinal tenderness Extremity: NARRATIVE EXTREMITY EXAM: Left lower extremity exam shows midfoot swelling, mainly medially. No other deformity. There is tenderness over the midfoot. Minimal ankle tenderness. Mild ankle swelling. Neuro: MAU COMA SCALE: document GCS findings [place] coma scale eye opening: Spontaneous [place] coma scale verbal response: Orientated M[place] coma scale motor response: Obey commands [place] coma scale total score: 15 Course Vital Signs: Vital signs: Vital Signs Temperature 98.0 F 07/12/23 18:59 Pulse Rate 56 L 07/12/23 21:04 Respiratory Rate 16 07/12/23 21:04 Blood Pressure 173/89 07/12/23 21:04 Pulse Oximetry 99 07/12/23 21:04 Oxygen Delivery Me thod Room Air 07/12/23 20:47 MDM - Fall Medical Decision Making 67-year-old male with 11 foot, level 1 trauma fall. He has a contusion to his face, fracture of his left midfoot. Abrasions to his chest. Imaging of head, cervical spine, chest abdomen pelvis are negative for acute traumatic injury. Ankle and foot x-ray show a nondisplaced fracture of the first cuneiform. There may be some widening of the first and second metatarsal space created by swelling versus the possibility of a Lisfranc fracture although Lisfranc fra cture is not apparent on x-ray. He is placed in a posterior splint. No weightbearing. Crutches. Foot/ankle surgery follow-up this week. Significance of the potential of Lisfranc fracture was stressed to the patient, as an emphasis not to bear weight until further evaluation with weightbearing films, etc. Lab Data Radiology Impressions Ankle X-Ray 07/12/23 19:07 IMPRESSION: On the lateral view there is an irregular linear lucency extending through 1 of the cuneiform bones, it is unclear which bone is involved. There is apparent abnormal widening of the base of the 1st and 2nd metatarsals. Consider midfoot CT for further evaluation as a cuneiform fracture and possibly Lisfranc injury can not be excluded. Cervical Spine CT 07/12/23 19:07 IMPRESSION: 1. No acute fracture of the cervical spine. 2. Stable multilevel degenerative changes of varying severity in the visualized spine. 3. Stable mild spinal canal stenosis at C2-C3 C5-C6, and C6-C7 in stable moderate spinal canal stenosis at C3-C4 and C4-C5. Stable multilevel foraminal stenosis of varying severity in the cervical spine. 4. Incidental/nonacute findings are listed in the report. Chest/Abdomen/Pelvis CT 07/12/23 19:07 IMPRESSION: 1. No pulmonary embolus. 2. No focal consolidation or pleural effusion. 3. Atherosclerosis. Coronary artery disease. IMPRESSION: 1. No solid organ injury in the abdomen or pelvis. 2. No secondary signs of bowel injury. 3. No fractures. Foot X-Ray 07/12/23 19:07 IMPRESSION: 1. No acute fracture identified. 2. Soft tissue swelling along the dorsal aspect of the forefoot.. Head CT 07/12/23 19:07 IMPRESSION: 1. No acute abnormality of the brain. 2. Stable lacunar infarcts in the left caudate lobe and left basal ganglia. 3. Incidental/nonacute findings are listed in the report. All radiology interpretation(s) finalized by discharge Discharge Plan Discharge Patient Disposition: Home Clinical Impression: Closed fracture of cuneiform bone of left foot, Abrasion of chest, Contusion of face Condition: Stable Prescriptions: New Percocet 7.5-325 mg tablet 1 tab PO Q6H PRN (Reason: pain) Qty: 10 0RF mupirocin 2 % ointment 1 applic topical BID Qty: 50 0RF No Action metoprolol succinate 25 mg tablet extended release 24 hr 25 mg PO DAILY Qty: 30 6RF nitroglycerin [Nitrostat] 0.4 mg tablet, sublingual 0.4 mg SUBLINGUAL Q5M PRN (Reason: CHEST PAINS) Qty: 25 2RF albuterol sulfate [ProAir HFA] 90 mcg/actuation HFA aerosol inhaler 2 inh INHALATION Q6H PRN (Reason: shortness of breath or wheezing) Qty: 18 2RF baclofen 10 mg tablet 10 mg PO BID Qty: 60 2RF Trulicity 0.75 mg/0.5 mL pen injector 0.75 mg SUBCUT .weekly Qty: 2 2RF Trelegy Ellipta 100-62.5-25 mcg blister with device 1 inh inhalation Q24H Qty: 60 2RF gabapentin 300 mg capsule 300 mg PO TID Qty: 90 2RF icosapent ethyl [Vascepa] 1 gram capsule 2 g PO BID Qty: 120 2RF sucralfate [Carafate] 1 gram tablet 1 g PO BID Qty: 60 2RF venlafaxine [Effexor XR] 75 mg capsule,extended release 24hr 75 mg PO QAM Qty: 30 2RF rosuvastatin [Crestor] 20 mg tablet 20 mg PO DAILY Qty: 90 2RF amlodipine 5 mg tablet 5 mg PO BID Qty: 180 3RF isosorbide mononitrate 30 mg tablet extended release 24 hr 30 mg PO BIDWM Qty: 90 3RF clopidogrel [Plavix] 75 mg tablet 75 mg PO DAILY Qty: 90 2RF Discharge Orders: Discharge ED (Routine); Ordered 07/12/23 Ordered By: Cassius Perez Referrals: Nigel Harris DPM [Physician] - 1-3 days Adriana Joiner FNP-C [Primary Care Provider] - Patient Instructions: Foot Fracture in Adults (ED), Abrasion (ED), Facial Contusion (ED), Opioid Safety, Pain Management Activity Restrictions/Additional Instructions: Return for worsening pain despite treatment, other concerning symptoms. Do not bear weight until seen by orthopedics. Call the orthopedic clinic tomorrow morning, for an appointment this week. Stay in your splint until seen. Ice may help with pain and swelling as well. Use the topical ointment prescribed for the abrasion to your chest. Wash gently with soap and water. Coding Level of Care Code ED Purchasing Associate for Bandar Valenzuela
[2023-07-12 21:04] VITALS: BP 173/89; PULSE 56; RESP 16; O2SAT 99
== END 2023-07-12 21:05 | disposition home or self-care (01) ==
PROVIDERS: Emergency Provider Emergency Medicine; PCP Nurse Practitioner
DX: S00.83XA Contusion of other part of head, initial encounter (principal); S92.242A Displaced fracture of medial cuneiform of left foot, initial encounter for closed fracture; S20.319A Abrasion of unspecified front wall of thorax, initial encounter; Z79.85 Long-term (current) use of injectable non-insulin antidiabetic drugs; Z79.02 Long term (current) use of antithrombotics/antiplatelets; F17.210 Nicotine dependence, cigarettes, uncomplicated; I25.10 Atherosclerotic heart disease of native coronary artery without angina pectoris; I11.0 Hypertensive heart disease with heart failure; I50.9 Heart failure, unspecified; E11.9 Type 2 diabetes mellitus without complications; J44.9 Chronic obstructive pulmonary disease, unspecified; E78.2 Mixed hyperlipidemia; W14.XXXA Fall from tree, initial encounter
CPT/HCPCS: 29515; 70450; 71260; 72125; 73610; 73630; 74177; 96374; 99285; J1885; Q9967

== ENCOUNTER 2023-07-13 06:00 | Outpatient (CLI) | payer MEDICARE, MEDICAID, SELFPAY | END 2023-07-13 06:01 | disposition home or self-care (01) | LOC: SPT 07-17 12:50 | PROVIDERS: PCP Nurse Practitioner; Visit Provider Podiatrist Foot & Ankle Surgery | DX: Z46.89 Encounter for fitting and adjustment of other specified devices (principal); M25.572 Pain in left ankle and joints of left foot; S92.322A Displaced fracture of second metatarsal bone, left foot, initial encounter for closed fracture; S92.345A Nondisplaced fracture of fourth metatarsal bone, left foot, initial encounter for closed fracture; S92.225A Nondisplaced fracture of lateral cuneiform of left foot, initial encounter for closed fracture; S92.245A Nondisplaced fracture of medial cuneiform of left foot, initial encounter for closed fracture; W17.89XA Other fall from one level to another, initial encounter; M24.572 Contracture, left ankle; E11.9 Type 2 diabetes mellitus without complications | CPT/HCPCS: 97760; 99204; L4361 ==

== ENCOUNTER 2023-07-15 17:16 | Outpatient (CLI) | payer MEDICARE, MEDICAID, SELFPAY ==
--- NOTE | 2023-07-15 17:30 | CT_ITS ---
WS: [id number] CT LEFT FOOT, NONCONTRAST, 3D HISTORY: rule out lisfranc fracture Technique: All CT scans at [facility] use at least one of these dose optimization techniques: automated exposure control; mA and/or kV adjustment per patient size (includes targeted exams where dose is matched to clinical indication); or iterative reconstruction. DLP: 148.44 mGy.cm COMPARISON: Radiographs 07/12/2023 Medial cuneiform: Comminuted fracture with multiple small osseous fragments along the plantar surface . Complex fracture. Intermediate cuneiform: No definite fracture is identified. There are several small adjacent osseous fragments. I believe the donor site is adjacent fractures. Lateral cuneiform: Multiple small fractures from the distal cuneiform extending into the tarsometatar alvaro joint space. Cuboid: No fracture. First metatarsal: No definite fracture. There are several bony fragments surrounding the base of the first metatarsal and in the proximal intermetatarsal articulation. Second metatarsal: Tiny avulsion fracture from the plantar surface. Third metatarsal: No fracture. Fourth metatarsal: Comminuted complex fracture involving the proximal metatarsal with extension into the particular surface. Fifth metatarsal: No fracture. Lisfranc articulation: Lateral displacement of the second metatarsal by 4.7 mm. There is widening of the articulation between the first and second proximal metatarsals. There are also several adjacent o sseous fragments between the proximal metatarsals and surrounding the tarsal bones at this location. There also may be very slight, less than 2 mm, lateral displacement of the third metatarsal with resp ect to the cuneiforms. No additional fractures. The calcaneus appears intact. Talus is normal. Large amount of soft tissue e sylvester surrounding the midfoot and neck into the ankle. IMPRESSION: 1. Lisfranc ligament injury. Lateral displacement of the second metatarsal by 4.7 mm. Less than 2 mm lateral displacement of the third metatarsal with respect to the cuneiforms. 2. Multiple fractures in the midfoot. Numerous osseous fragments extend into the intertarsal and the proximal intermetatarsal articulations. 3. Comminuted fracture involving the medial and lateral cuneiforms. 4. Fractures involving the second and fourth metatarsals. There is several osseous fragments adjacent to the proximal first metatarsal but cannot identify a donor site.
== END 2023-07-15 17:17 | disposition home or self-care (01) ==
LOC: RAD 17:16
PROVIDERS: PCP Nurse Practitioner; Visit Provider Podiatrist Foot & Ankle Surgery
DX: S92.242A Displaced fracture of medial cuneiform of left foot, initial encounter for closed fracture (principal); S92.222A Displaced fracture of lateral cuneiform of left foot, initial encounter for closed fracture; S99.822A Other specified injuries of left foot, initial encounter; S92.322A Displaced fracture of second metatarsal bone, left foot, initial encounter for closed fracture; S92.342A Displaced fracture of fourth metatarsal bone, left foot, initial encounter for closed fracture; S93.325A Dislocation of tarsometatarsal joint of left foot, initial encounter; X58.XXXA Exposure to other specified factors, initial encounter; I25.118 Atherosclerotic heart disease of native coronary artery with other forms of angina pectoris; I11.0 Hypertensive heart disease with heart failure; I50.32 Chronic diastolic (congestive) heart failure; E78.2 Mixed hyperlipidemia; Z79.899 Other long term (current) drug therapy; Z72.0 Tobacco use
CPT/HCPCS: 73700; 99214

== ENCOUNTER → 2023-07-21 12:50 | Outpatient (BNVA) | payer MEDICARE, MEDICAID, SELFPAY | PROVIDERS: PCP Nurse Practitioner; Visit Provider Podiatrist Foot & Ankle Surgery | DX: W17.89XA Other fall from one level to another, initial encounter (principal); S92.322A Displaced fracture of second metatarsal bone, left foot, initial encounter for closed fracture; M24.572 Contracture, left ankle; S92.345A Nondisplaced fracture of fourth metatarsal bone, left foot, initial encounter for closed fracture; S92.225A Nondisplaced fracture of lateral cuneiform of left foot, initial encounter for closed fracture; S92.245A Nondisplaced fracture of medial cuneiform of left foot, initial encounter for closed fracture | CPT/HCPCS: 99214 ==

== ENCOUNTER 2023-07-24 05:49 | Day surgery (SDC) | payer MEDICARE, MEDICAID, SELFPAY ==
[2023-07-24] VITALS (12 sets, daily range): BP systolic 116–152; BP diastolic 77–97; PULSE 60–68; RESP 15–18; TEMP 36.1–36.6; O2SAT 93–97; BMI 27.8
--- NOTE | 2023-07-24 | XR_ITS ---
WS: [id number] C-ARM RADIOGRAPHS LEFT FOOT; 2 IMAGES HISTORY: LEFT FOOT FX COMPARISON: 07/15/2023 Plate and screw fixation proximal first and second metatarsals with a screw traversing between the me dial and intermediate cuneiform. Additional pin fixation through the fourth metatarsal and the tarsal bones. Additional large screw through the proximal first metatarsal to the medial cuneiform. IMPRESSION: Intraoperative imaging during tarsal /metatarsal fixation and stabilization.
[2023-07-24] MEDS: sodium chloride 0.9% 1,000 ML 30 ML IV (06:53)
[2023-07-24 06:54] LABS: Glucose Point of Care 137 mg/dL (70-110)
--- NOTE | 2023-07-24 07:16 | ANES.PREANE2 ---
Pre-Anesthetic Assessment Height/Weight: Height 1.8 m Weight 90.718 kg Temp Pulse Resp BP Pulse Ox O2 Del Method 97.1 F L 68 18 116/77 97 Room Air 07/24/23 06:44 07/24/23 06:44 07/24/23 06:44 07/24/23 06:44 07/24/23 06:44 07/24/23 06:44 Preop Diagnosis: Left Lisfranc fracture dislocation. Left ankle equinus Operation Date: 07/24/23 07:55 Proposed Procedures p primary arthrodesis left first and second tarsometatarsal [id number],w17.89xa,s92.322a,s92.345a,s92.225a,s92.245a,m24.572,M79.672(Left) - HILDA Javier open reduction internal fixation left fourth metatarsal fracture(Left) - HILDA Javier left Achilles lengthening and percutaneous pinning left third metatarsal(Left) - Nigel Harris DPM Familial anesthetic complications: None Was Beta Lela taken within 24 hours: N/A Was Clonidine taken within 24 hours: N/A Last intake: Intake Last Liquid Date 07/23/23 Last Liquid Time 19:30 Last Solid Date 07/23/23 Last Solid Time 19:30 Social Tobacco and No alcohol Exam alert, oriented x 3, clear to auscultation bilaterally and regular rate & rhythm Airway Dentition: false Pulmonary Chronic Obstructive Pulmonary Disease CV/HEM Coronary Artery Disease (LAD stent), Congestive Heart Failure, Hypertension and Myocardial Infarction MVR Ef 43% GI Gastroesophageal Reflux Disease Metabolic Diabetes Mellitus Anesthetic Plan ASA status: 3 Anesthesia: General Risk of > 500 ml blood loss (7ml/kg in children): No Medications/Allergies Home Medications Medication Instructions Recorded Confirmed Last Taken Type metoprolol succinate 25 mg 25 mg PO DAILY #30 tabs 04/04/22 07/24/23 07/23/23 Rx tablet,extended release 24 hr nitroglycerin 0.4 mg sublingual 0.4 mg sublingual Q5M PRN CHEST 04/04/22 07/24/23 Unknown Rx tablet (Nitrostat) PAINS #25 tabs rosuvastatin 20 mg tablet (Crestor) 20 mg PO DAILY #90 tabs 04/28/23 07/24/23 07/23/23 Rx amlodipine 5 mg tablet 5 mg PO BID #180 tabs 05/18/23 07/24/23 07/24/23 Rx isosorbide mononitrate 30 mg 30 mg PO BIDWM #90 tabs 06/01/23 07/24/23 07/23/23 Rx tablet,extended release 24 hr albuterol sulfate 90 mcg/actuation 2 inh inhalation Q6H PRN shortness 06/18/23 07/24/23 07/24/23 Rx aerosol inhaler (ProAir HFA) of breath or wheezing #18 grams baclofen 10 mg tablet 10 mg PO BID #60 tabs 06/18/23 07/24/23 07/24/23 Rx dulaglutide 0.75 mg/0.5 mL 0.75 mg (0.5 mL) SUBCUT .weekly #2 06/18/23 07/24/23 07/23/23 Rx subcutaneous [facility] fluticasone fur. 100 mcg-umeclid 1 inh inhalation Q24H #60 ea 06/18/23 07/24/23 07/23/23 Rx 62.5 mcg-vilant 25 mcg inhalat.powder (Trelegy Ellipta) gabapentin 300 mg capsule 300 mg PO TID #90 caps 06/18/23 07/24/23 07/23/23 Rx icosapent ethyl 1 gram capsule 2 g PO BID #120 caps 06/18/23 07/23/23 07/23/23 Rx (Vascepa) sucralfate 1 gram tablet (Carafate) 1 g PO BID #60 tabs 06/18/23 07/24/23 07/23/23 Rx venlafaxine 75 mg capsule,extended 75 mg PO QAM #30 caps 06/18/23 07/23/23 07/23/23 Rx release 24 hr (Effexor XR) clopidogrel 75 mg tablet (Plavix) 75 mg PO DAILY #90 tabs 06/30/23 07/23/23 07/21/23 Rx mupirocin 2 % topical ointment 1 applic topical BID #50 grams 07/12/23 07/24/23 Unknown Rx oxycodone-acetaminophen 7.5 mg-325 1 tab PO Q6H PRN pain #10 tabs 07/12/23 07/24/23 07/13/23 Rx mg tablet (Percocet) Cam Boot #1 ea 07/13/23 07/21/23 Unknown Rx Allergies Allergy/AdvReac Type Severity Reaction Status Date / Time No Known Allergies Allergy Verified 07/21/23 12:52 Current Medications Generic Name Dose Route Start Last Admin Trade Name Freq PRN Reason Stop Dose Admin Sodium Chloride 1,000 mls @ 30 mls/hr 07/24/23 06:30 07/24/23 06:53 Sodium Chloride 0.9% IV 07/25/23 06:29 30 mls/hr .Q24H CHERYL Administration PFSH Anesthesia Medical History CAD (coronary artery disease) Cervical disc disease CHF (congestive heart failure) Chronic mitral valve regurgitation Controlled type 2 diabetes mellitus with hyperglycemia, without long-term current use of insulin COPD, mild Essential (primary) hypertension GERD (gastroesophageal reflux disease) Mixed hyperlipidemia Personal history of nicotine dependence Surgical History History of arthroscopy of right knee 2017 Status post percutaneous 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 (~2003) AND 2014 Family History Other CAD (coronary artery disease) Cancer Diabetes Social History Smoking and tobacco/nicotine status: current every day tobacco/nicotine user cigarettes Packs smoked per day: 1 Second hand smoke exposure: Yes Alcohol intake: never Substance/Drug Use: never Adopted: No Caregiver/support person: No Lives independently: Yes Household members: significant other Housing: House Marital status: Single Number of children: 6 service: No Current occupational status: retired Do you think of yourself as: Straight/Heterosexual Current gender identity: Male Data Anesthesia Cardiac Studies: Sestamibi Stress Test (Cardiology) 01/15/21
--- NOTE | 2023-07-24 07:54 | P.HPUD_ITS ---
Surgery/Procedure H&P Update DATE OF PROCEDURE: July 24, 2023 DATE H&P PERFORMED: 07/21/23 H&P UPDATE INFORMATION: I have reviewed H&P completed within last 30 days, I have examined patient prior to procedure, No changes to prior documentation and H&P is in [facility] EMR on date indicated PREOP DIAGNOSIS: Left Lisfranc fracture dislocation. Left ankle equinus PLANNED PROCEDURE: Operation Date: 07/24/23 07:55 Proposed Procedures p primary arthrodesis left first and second tarsometatarsal [id number],w17.89xa,s92.322a,s92.345a,s92.225a,s92.245a,m24.57 2,M79.672(Left) - Nigel Harris DPM s open reduction internal fixation left fourth metatarsal fracture(Left) - Nigel Harris DPM s left Achilles lengthening and percutaneous pinning left third metatarsal(Left) - Nigel Harris DPM
[2023-07-24] MEDS: ceFAZolin 2,000 MG in sodium chloride 0.9% (plus) 50 ML 100 MG IV (08:07)
[2023-07-24] MEDS: BUPivacaine liposome 13.3 mg/mL SDV 10 mL 266 MG INJECTION (08:24)
[2023-07-24] MEDS: BUPivacaine 0.5% INJ 30 mL 20 ML INJECTION (08:24)
--- NOTE | 2023-07-24 09:40 | PM.OP ---
Operative Report Date of procedure: July 24, 2023 Pre-op diagnosis: Left Lisfranc fracture dislocation Post-op diagnosis: Same Procedure done: 1) primary arthrodesis left first and second tarsometatarsal joint. CPT code 29249 2) open reduction internal fixation left fourth metatarsal fracture. CPT code 43199 3) percutaneous pinning left third metatarsal. CPT code 52740 Implants: [place] Lapidus plate [place] 4 mm screw 3.5 millimeter screws [place] straight angled plate with 2.7 millimeter screws [employer]hew 0.045 K wires with Juan Manuel balls x 2 Skin larissa Surgeon: Nigel Harris DPM Puff Ironer: See intraoperative documentation Estimated blood loss: 5 107 minutes IV fluids: 0 Urine output: 0 Complications: None Brief History: Patient saw cardiology 07/15/2023, per cardiology report he is stable from cardiac standpoint Discussed CT findings with the patient, he wishes to proceed with surgical intervention. I reviewed at length with the patient, the risks, potential complications, benefits, alternatives, expectations, and typical outcomes associated with the surgery. The risks and potential complications were explained in detail, including but not limited to infection, wound dehiscence or soft tissue complications, bleeding and hematoma, chronic edema, neuritis or nerve damage producing numbness or chronic pain, CRPS, failure to relieve pain or worsening pain, thick / painful / unsightly scar, limited motion / stiffness, malposition, delayed union, malunion, or nonunion, fracture, reaction to implants, anesthetic complications, venous thromboembolism, and deformity recurrence. I discussed the notion of no regrets with the patient as it pertains to complications and outcomes. The patient seemed to understand the nature of the proposed care and required convalescence. They asked appropriate questions, answered to their satisfaction. They are aware no guarantees can be made as to a satisfactory outcome and they understand there may be other possible unforeseen complications or outcomes not listed here that will be treated accordingly if they arise. There were no written or implied guarantees given to the patient. They gave informed consent to proceed. Procedure: Under mild sedation the patient was brought to the operating room and placed on the operative table in supine position. A timeout is performed. Anesthesia was then administered by the anesthesia service. Local esthesia injected by myself consisting of 20 cc of 0.5 to Marcaine plain and 20 cc of Exparel left foot. Well-padded pneumatic tourniquet applied to the left ankle. Left lower extremity was scrubbed, prepped and draped utilizing normal aseptic technique. Left foot was exanguinated with an Esmarch bandage and the tourniquet inflated to 250 mmHg. Attention was directed to the first and second ray of the left tarsometatarsal joint with gross instability appreciated. Dual incision was performed over the first and second tarsometatarsal joints through skin with a 15 blade with dissection carried down to layer of periosteum utilizing sharp and blunt technique. Care was taken to retract and preserve neurovascular and tendinous structures. All bleeders were ligated and cauterized as necessary. Fracture, comminution and gross instability at the first and second tarsometatarsal joints was appreciated. Planned arthrodesis was carried out utilizing standard technique with denuding of cartilage surface with curettage, for scaling followed by saline flush and subchondral fenestrating drill bit, first and second tarsometatarsal joints were compressed and fixated utilizing [place] hardware this was a homerun screw at 4 mm at the first metatarsal to medial cuneiform followed by locking plate laterally 3.5 millimeter screws and a dorsal plate at the second ray which was a [place] straight angled with 2.7 mm locking and nonlocking screws with excellent bony apposition and compression noted. All bony voids were filled with DBM. Attention was then directed to the third metatarsal noted to have ligamentous laxity instability at the third metatarsal base, K wire fixation was utilized to pin the third metatarsal to the lateral cuneiform for stability until soft tissue was of healed. Intraoperative fluoroscopy confirmed excellent placement of K wire fixation at the third metatarsal as well as excellent placement of first and second ray hardware. No hardware violated the talonavicular joint. Attention then directed to the fourth metatarsal base fracture which was fixated utilizing a [employer]hew trocar tip 0.045 K wire with live fluoroscopy, excellent fixation appreciated and additional fixation with advancement to the cuboid was performed. Both K wires were bent at 90 degrees dorsally and covered with a Juan Manuel ball. Incisions were irrigated with copious amounts of sterile skin solution and closed in a layered fashion utilizing absorbable suture. Skin closed with nylon. The lower extremity was dressed with multilayer compressive posterior splint. Tourniquet was deflated and a prompt hyperemic response was noted to the distal digits of the left foot. Patient tolerated the procedure and anesthesia well and was transferred to the PACU with vital signs stable and vascular status intact. Following a period of postop monitoring he will be discharged home is to remain strict nonweightbearing and elevate left below resting. Was given at home care instructions, scheduled follow-up and my cell phone number to contact me with any postoperative questions or concerns.
--- NOTE | 2023-07-24 09:51 | W.PM.BPON ---
Date of Procedure: 07/24/23 Surgeon: Nigel Harris DPM Front End Loader Operator(s): JHON Marlow Procedure(s) performed: Arthrodesis of left first and second tarsometatarsal joints and percutaneous pinning of third and fourth metatarsal fractures. Findings of the procedure(s): Lisfranc fracture dislocation left foot Estimated blood loss: 5 Specimen(s) removed: No specimens moved Post-operative diagnosis: Left Lisfranc fracture dislocation
--- NOTE | 2023-07-24 09:52 | PM.OP ---
Operative Report Date of procedure: July 24, 2023 Surgeon: Nigel Harris DPM [id number]
[2023-07-24] MEDS: fentaNYL 50 mcg/mL INJ 2mL IVP (10:07)
[2023-07-24] MEDS: HYDROcodone-acetaminophen 5-325 mg Tablet 2 TAB PO (10:41)
--- NOTE | 2023-07-24 11:25 | ANE.PACU2 ---
Inpatient post-anesthesia follow up: Airway intact: Yes Vital signs: Temperature 97.8 F Pulse Rate 64 Respiratory Rate 16 Blood Pressure 135/83 Pulse Oximetry 95 Oxygen Delivery Me thod Room Air Oxygen Flow Rate 6 Fraction of Inspir ed Oxygen Hydration adequate: Yes Nausea and vomiting: No Pain level: 1 Mental status: Baseline
== END 2023-07-24 11:25 | disposition home or self-care (01) ==
PROVIDERS: PCP Nurse Practitioner; Visit Provider Podiatrist Foot & Ankle Surgery
PROC: (CPT 28740; principal; 2023-07-24 07:45)
PROC: (CPT 28485; 2023-07-24 07:45)
PROC: (CPT 28261; 2023-07-24 07:45)
DX: S93.325A Dislocation of tarsometatarsal joint of left foot, initial encounter (principal); X58.XXXA Exposure to other specified factors, initial encounter; J44.9 Chronic obstructive pulmonary disease, unspecified; I25.10 Atherosclerotic heart disease of native coronary artery without angina pectoris; I11.0 Hypertensive heart disease with heart failure; I50.9 Heart failure, unspecified; I25.2 Old myocardial infarction; K21.9 Gastro-esophageal reflux disease without esophagitis; E11.65 Type 2 diabetes mellitus with hyperglycemia; I10 Essential (primary) hypertension; E78.2 Mixed hyperlipidemia; F17.210 Nicotine dependence, cigarettes, uncomplicated
CPT/HCPCS: 28476; 28485; 28730; 36416; 73620; 76000; 82962; C1713; C1762; C9290; J0330; J0690; J2250; J2371; J2704; J3010; J3490; J7030

== ENCOUNTER → 2023-07-29 11:07 | Outpatient (BNVA) | payer MEDICARE, MEDICAID, SELFPAY | PROVIDERS: PCP Nurse Practitioner; Visit Provider Podiatrist Foot & Ankle Surgery | DX: Z98.890 Other specified postprocedural states (principal); S92.322D Displaced fracture of second metatarsal bone, left foot, subsequent encounter for fracture with routine healing; S92.345D Nondisplaced fracture of fourth metatarsal bone, left foot, subsequent encounter for fracture with routine healing; S92.225D Nondisplaced fracture of lateral cuneiform of left foot, subsequent encounter for fracture with routine healing; S92.245D Nondisplaced fracture of medial cuneiform of left foot, subsequent encounter for fracture with routine healing; W17.89XD Other fall from one level to another, subsequent encounter | CPT/HCPCS: 99024 ==

== ENCOUNTER → 2023-08-06 13:12 | Outpatient (BNVA) | payer MEDICARE, MEDICAID, SELFPAY | PROVIDERS: PCP Nurse Practitioner; Visit Provider Podiatrist Foot & Ankle Surgery | DX: S92.322A Displaced fracture of second metatarsal bone, left foot, initial encounter for closed fracture (principal); S92.245A Nondisplaced fracture of medial cuneiform of left foot, initial encounter for closed fracture; S92.225A Nondisplaced fracture of lateral cuneiform of left foot, initial encounter for closed fracture; S92.345A Nondisplaced fracture of fourth metatarsal bone, left foot, initial encounter for closed fracture; W17.89XA Other fall from one level to another, initial encounter | CPT/HCPCS: 73630; 99024 ==

== ENCOUNTER → 2023-09-03 12:58 | Outpatient (BNVA) | payer MEDICARE, MEDICAID, SELFPAY | PROVIDERS: PCP Nurse Practitioner; Visit Provider Podiatrist Foot & Ankle Surgery | DX: S92.322D Displaced fracture of second metatarsal bone, left foot, subsequent encounter for fracture with routine healing; S92.345D Nondisplaced fracture of fourth metatarsal bone, left foot, subsequent encounter for fracture with routine healing; S92.245D Nondisplaced fracture of medial cuneiform of left foot, subsequent encounter for fracture with routine healing; S92.225D Nondisplaced fracture of lateral cuneiform of left foot, subsequent encounter for fracture with routine healing; W17.89XD Other fall from one level to another, subsequent encounter | CPT/HCPCS: 73630; 99024 ==

== ENCOUNTER → 2023-09-10 15:22 | Outpatient (BNVA) | payer MEDICARE, MEDICAID, SELFPAY | PROVIDERS: PCP Nurse Practitioner; Visit Provider Nurse Practitioner | DX: E11.9 Type 2 diabetes mellitus without complications (principal) | CPT/HCPCS: 80053; 80061; 82607; 83036 ==

== ENCOUNTER → 2023-09-24 15:02 | Outpatient (BNVA) | payer MEDICARE, MEDICAID, SELFPAY | PROVIDERS: PCP Nurse Practitioner; Visit Provider Podiatrist Foot & Ankle Surgery | DX: Z98.890 Other specified postprocedural states (principal) | CPT/HCPCS: 73630; 99024 ==

== ENCOUNTER → 2024-01-26 10:51 | Outpatient (BNVA) | payer MEDICARE, MEDICAID, SELFPAY | PROVIDERS: PCP Nurse Practitioner; Visit Provider Nurse Practitioner Family | DX: I25.118 Atherosclerotic heart disease of native coronary artery with other forms of angina pectoris (principal); F17.210 Nicotine dependence, cigarettes, uncomplicated; I11.0 Hypertensive heart disease with heart failure; I50.9 Heart failure, unspecified | CPT/HCPCS: 99214 ==

== ENCOUNTER → 2024-02-25 14:15 | Outpatient (BNVA) | payer MEDICARE, MEDICAID, SELFPAY | PROVIDERS: PCP Nurse Practitioner; Visit Provider Nurse Practitioner | DX: Z12.5 Encounter for screening for malignant neoplasm of prostate (principal); E11.9 Type 2 diabetes mellitus without complications | CPT/HCPCS: 80053; 80061; 83036; G0103 ==

== ENCOUNTER → 2024-10-27 11:58 | Outpatient (BNVA) | payer MEDICARE, MEDICAID, SELFPAY | PROVIDERS: PCP Nurse Practitioner; Visit Provider Nurse Practitioner | DX: E11.65 Type 2 diabetes mellitus with hyperglycemia (principal) | CPT/HCPCS: 80053; 80061; 82607; 83036 ==

== ENCOUNTER → 2024-12-01 12:56 | Outpatient (BNVA) | payer MEDICARE, MEDICAID, SELFPAY | PROVIDERS: PCP Nurse Practitioner; Visit Provider Internal Medicine Cardiovascular Disease | DX: I25.118 Atherosclerotic heart disease of native coronary artery with other forms of angina pectoris (principal); I11.0 Hypertensive heart disease with heart failure; I50.9 Heart failure, unspecified; J44.9 Chronic obstructive pulmonary disease, unspecified; Z95.5 Presence of coronary angioplasty implant and graft; F17.210 Nicotine dependence, cigarettes, uncomplicated | CPT/HCPCS: 99214 ==

== ENCOUNTER → 2025-04-10 09:15 | Outpatient (BNVA) | payer MEDICARE, MEDICAID, SELFPAY | PROVIDERS: PCP Nurse Practitioner; Visit Provider Nurse Practitioner | DX: I10 Essential (primary) hypertension (principal); E11.65 Type 2 diabetes mellitus with hyperglycemia; Z12.5 Encounter for screening for malignant neoplasm of prostate | CPT/HCPCS: 80053; 80061; 82043; 83036; 85025; G0103 ==

== ENCOUNTER → 2025-07-03 09:04 | Outpatient (BNVA) | payer MEDICARE, MEDICAID, SELFPAY | PROVIDERS: PCP Nurse Practitioner; Visit Provider Nurse Practitioner | DX: E11.9 Type 2 diabetes mellitus without complications (principal) | CPT/HCPCS: 80053; 80061; 83036; 85025 ==